=== PATIENT | male | born 1960 | race Caucasian/White ===

== ENCOUNTER → 2020-11-30 | Outpatient (CLI) | payer MEDICARE ==
--- NOTE | 2020-11-30 15:16 | REP ---
INDICATION: CLAUDICATION, PVD. COMPARISON: None. TECHNIQUE: Real time gregorio scale and Duplex Doppler evaluation of the right lower extremity arterial vasculature using linear high frequency transducer. FINDINGS: The ankle to brachial index of the right lower extremity is 1.07. Moderate plaque is seen throughout the right lower extremity arterial structures with no focal stenosis. There is no evidence of arterial occlusion. There are diffuse triphasic waveforms. PSV(cm/sec) Common femoral artery: 145 cm/s Profunda femoris artery: 155 cm/s Proximal superficial femoral artery: 142 cm/s Mid superficial femoral artery: 107 cm/s Distal superficial femoral artery: 137 cm/s Popliteal artery: 71 cm/s Proximal CANELO: 72 cm/s Tibioperoneal trunk: 51 cm/s Proximal [employer]: 73 cm/s Distal [employer] MA[employer]GER: 59 cm/s Distal CANELO: 56 cm/s IMPRESSION: No Duplex Doppler sonographic evidence of hemodynamically significant stenosis of the right lower extremity arterial system. Moderate diffuse plaquing. <Electronically signed by Diego Gregorio > 11/30/20 [id number]
== END ==
LOC: M RAD 13:03
PROVIDERS: ATTEND Student in an Organized Health Care Education/Training Program
DX: I73.9 Peripheral vascular disease, unspecified (principal)